=== PATIENT | female | born 1990 | race Caucasian/White ===

== ENCOUNTER 2020-09-26 23:49 | Inpatient (IN) | payer OTHER ==
[~2020-09-26] VITALS: Ht 165.1 cm; Wt 99.3 kg
--- NOTE | ~2020-09-26 | OR ---
[facility] [address] [place], [place] [address] Draft DATE OF OPERATION: 09/27/2020 SURGEON: Cristina Cueto MD DATE OF PROCEDURE: 09/27/2020 VENDING MACHINE SERVICER: Louie Finnegan M.D. PREOPERATIVE DIAGNOSIS: Term , secondary arrest of dilation. POSTOPERATIVE DIAGNOSIS: Term , secondary arrest of dilation, delivered. PROCEDURE: Primary section with low segment transverse uterine incision. ANESTHESIA: Epidural. ESTIMATED BLOOD LOSS: 600 mL. DRAINS: Agudelo catheter. INDICATIONS AND FINDINGS: The patient is a 30-year-old female, 4, para 1, SAB one, VIP 1, who was admitted at approximately midnight with active labor. She had come in when she was 5.5 to 6 cm dilated. She received an epidural and artificial rupture membranes was carried out with a moderate amount of clear fluid. Subsequently, she made extremely slow progress. She eventually reached 8 cm over the next 7 hours; however, at that point, she made no further progress. Pitocin augmentation was done and contraction pattern appeared adequate. She was tried on multiple different positions. It was felt at that point that there was secondary arrest of dilation and was indicated. The patient was consented. She was taken to the operating room, where she was delivered of a little girl via lower segment transverse uterine incision from the ROP position with Apgars of 9 and 9 and weight of 8 pounds 15 ounces. Uterus, tubes, ovaries, and placenta were PATIENT NAME: ADRIENNE RUIZ OPERATIVE REPORT DATE OF : 86 REPORT #: [id number] PHYSICIAN: CRISTINA CUETO MD PCP: CRISTINA CUETO MD REPORT IS CONFIDENTIAL AND NOT TO BE RELEASED WITHOUT AUTHORIZATION [facility] [address] [place], [place] [address] Draft normal. DESCRIPTION OF PROCEDURE: The patient was prepped and draped in the supine position. A Pfannenstiel skin incision was made and carried down through the fascia. The incision was extended laterally. The inferior and superior fascial flaps were created. The muscles were bluntly divided and the peritoneum opened bluntly and the incision extended inferiorly and superiorly. The Lowell retractor was placed. The uterine incision was made at the upper aspect of the peritoneal reflection. The baby was delivered with the above findings and handed off to the pediatric staff in attendance. Following this, placenta was removed manually. The uterus was explored with a lap tape assuring no remaining fragments. The edges of the incision were identified and the uterus was closed in 2 layers using 0-Monocryl. The first layer was a running locking stitch and the second was a vertical imbricating stitch. Additional suture was required near the left angle and in the mid section for control of bleeding. The abdomen was then copiously irrigated, inspected. Bleeding points along the peritoneal edge were controlled with cautery. The retractor was removed and the peritoneum identified. An ACell graft was laid over the lower segment to aid in healing. The peritoneum was then closed with a running suture of 3-0 Vicryl. The muscles were brought together with interrupted sutures of 0-Vicryl. Bleeding points were controlled on the muscle using cautery. Additional gjzkch-ro-[id number] of 0-Vicryl were required at the right upper aspect of the fascia and muscle for control of bleeding. This layer was then serially irrigated and inspected and good hemostasis was noted. ACell powder was sprinkled over the muscles to aid in healing. The fascia was then closed from each angle to the midline with a running suture of 0-Vicryl. The subcu space was irrigated and bleeding points controlled with cautery. The deep space was closed with interrupted sutures of 3-0 Vicryl. The skin was closed with flaquita. All sponge and needle counts were correct. She tolerated the procedure well and was taken to the recovery room in good condition. MD KARRIE MaderaW/MODL /[id number] cc: Louie Finnegan MD PATIENT NAME: ADRIENNE RUIZ OPERATIVE REPORT DATE OF : 86 REPORT #: [id number] PHYSICIAN: CRISTINA CUETO MD PCP: CRISTINA CUETO MD REPORT IS CONFIDENTIAL AND NOT TO BE RELEASED WITHOUT AUTHORIZATION [facility] [address] [place] [id number] Draft Copies: LOUIE FINNEGAN MD ~ PATIENT NAME: ADRIENNE RUIZ SUTTON OPERATIVE REPORT DATE OF : 86 REPORT #: [id number] PHYSICIAN: CRISTINA CUETO MD PCP: CIRSTINA CUETO MD REPORT IS CONFIDENTIAL AND NOT TO BE RELEASED WITHOUT AUTHORIZATION
[~2020-09-26 23:49] MED LIST: PRENATAL VITAM1 EAC7 PO; ZANTAC150 MG PO
--- NOTE | 2020-09-27 01:51 | PR ---
[facility] [address] [facility] [place], [place] [address] Signed Progress Notes IP Datetime Report Generated by HERON: 09/27/2020 01:51 PROGRESS NOTES: [id number] Impression: Normal Progression of Labor Procedures: Artificial ROM; Sterile Vag Exam Plan: Continue Present Management VITAL SIGNS: [id number] Vital Signs: Reviewed VS Notable Details: intermittent HTN EXAM: [id number] Dilatation: 6.0 Effacement: 80 Station: -2 Contractions: q 3 to 5 min MEMBRANES: [id number] Comments: Comfortable after epidural. Will continue present care. FETUS A: [id number] FHR Baseline: 140 Variability: Moderate 6-25bpm Accelerations: 10X10 FHR Category: Category II Presentation: Vertex Comments on Fetus A: possible decels though difficult to characterize at this time FETUS B: [id number] Signing Physician: Cristina Cueto MD Copies: ~ *Electronically Signed* 09/27/20 0151 CRISTINA CUETO MD PATIENT NAME: ADRIENNE RUIZ PROGRESS NOTE DATE OF : 86 PHYSICIAN: CRISTINA CUETO MD RPT #: [id number] REPORT IS CONFIDENTIAL AND NOT TO BE RELEASED WITHOUT AUTHORIZATION
--- NOTE | 2020-09-27 08:34 | PR ---
[facility] [address] [facility] [place] [address] Signed Progress Notes IP Datetime Report Generated by HERON: 09/27/2020 08:34 PROGRESS NOTES: [id number] Impression: Normal Progression of Labor Other Impressions: very slow progress Procedures: Intrauterine Pressure Catheter; Scalp Electrode Plan: Augmentation VITAL SIGNS: [id number] Vital Signs: Reviewed VS Notable Details: intermittent HTN EXAM: [id number] Dilatation: 8.0 Effacement: 85 Station: -2 Contractions: q 3 to 5 min MEMBRANES: [id number] Comments: Very slow progress. Very edematous cervix ant and to right. Will place IUPC and augment with pitocin as needed. Suspect inadequate contraction strength and frequency. Will change positions as well and continue close observation. FETUS A: [id number] FHR Baseline: 140 Variability: Moderate 6-25bpm Accelerations: 10X10 FHR Category: Category II Presentation: Vertex Comments on Fetus A: possible decels though difficult to characterize at this time FETUS B: [id number] Signing Physician: Cristina Cueto MD Copies: ~ *Electronically Signed* 09/27/20 0834 CRISTINA CUETO MD PATIENT NAME: ADRIENNE RUIZ PROGRESS NOTE DATE OF : 86 PHYSICIAN: CRISTINA CUETO MD RPT #: [id number] REPORT IS CONFIDENTIAL AND NOT TO BE RELEASED WITHOUT AUTHORIZATION
--- NOTE | 2020-09-27 11:13 | PR ---
[facility] [address] [place], [place] [address] Signed Progress Notes IP Datetime Report Generated by CPN: 09/27/2020 11:13 PROGRESS NOTES: [id number] Impression: Arrest of Dilatation/Descent Other Impressions: very slow progress Procedures: Sterile Vag Exam Plan: Deliver- Section Informed Consent Obtain: Section Delivery; Risks, Benefits and Alternatives Discussed VITAL SIGNS: [id number] Vital Signs: Reviewed VS Notable Details: intermittent HTN EXAM: [id number] Dilatation: 8.0 Effacement: 85 Station: -2 Contractions: q 3 to 5 min MEMBRANES: [id number] Comments: No progress over the last 4 hrs despite adequate contractions with pit augmentation. I feel C/S is indicated given the arrest of dilation. PARQ done with pt. Will proceed with C/S. FETUS A: [id number] FHR Baseline: 140 Variability: Moderate 6-25bpm Accelerations: 10X10 FHR Category: Category II Presentation: Vertex Comments on Fetus A: possible decels though difficult to characterize at this time FETUS B: [id number] Signing Physician: Cristina Cueto MD Copies: ~ *Electronically Signed* 09/27/20 1113 CRISTINA CUETO MD PATIENT NAME: ADRIENNE RUIZ PROGRESS NOTE DATE OF : 86 PHYSICIAN: CRISTINA CUETO MD RPT #: [id number] REPORT IS CONFIDENTIAL AND NOT TO BE RELEASED WITHOUT AUTHORIZATION
--- NOTE | 2020-09-27 13:07 | NUR ---
09/27/20 1307 Yamilet Keenan 1258: PT ARRIVES TO [facility] ROOM 102 FROM OR AWAKE AND ALERT. PT DENIES PAIN OR NAUSEA ON ARRIVAL. SPOUSE IN ROOM AT BEDSIDE WITH INFANT. [facility] RN IN ROOM ASSISTING SPOUSE/PT WITH BREAST FEEDING. POLICE JUDGE IN RM AT THIS TIME. 1305: PT HOLDING ON RIGHT SIDE BREAST FEEDING. CONT TO DENY ANY PAIN OR NAUSEA.
--- NOTE | 2020-09-28 08:59 | PR ---
[facility] [address] [facility] [place], [place] [address] Signed PP Progress Notes Datetime Report Generated by CPN: 09/28/2020 08:59 SUBJECTIVE: [id number] Pain: Within Normal Limits Nausea/Vomiting: Denies Flatus: No Vital Signs: [id number] Vital Signs: Reviewed; Within Normal Limits EXAM: Ongoing Cardiovascular: Normal Respiratory: Normal Abdomen/Uterus: Abnormal Lochia: Normal Vulva/Perineum: Not Done Breasts: Not Done CVA Tenderness: Not Done Extremities: Normal Incision: Normal Progress: Normal Exam Comments: Abdomen has active BS. Fundus firm, NT @ U-1. H/H 9.9/29.5, WBC 18.2, plat 190k IMPRESSION/PLAN/PROCEDURES: [id number] Impression: Normal Progression Other Plans: increase activity Progress Notes: Doing well. Will increase activity. Signing Physician: Cristina Cueto MD Copies: ~ *Electronically Signed* 09/28/20 0859 CRISTINA CUETO MD PATIENT NAME: ADRIENNE RUIZ SUTTON PROGRESS NOTE DATE OF : 86 PHYSICIAN: CRISTINA CUETO MD RPT #: [id number] REPORT IS CONFIDENTIAL AND NOT TO BE RELEASED WITHOUT AUTHORIZATION
--- NOTE | 2020-09-29 08:43 | PR ---
[facility] [address] [facility] [place], [place] [address] Signed PP Progress Notes Datetime Report Generated by CPN: 09/29/2020 08:43 SUBJECTIVE: [id number] Pain: Within Normal Limits Nausea/Vomiting: Denies Flatus: Yes Vital Signs: [id number] Vital Signs: Reviewed; Within Normal Limits EXAM: Ongoing Cardiovascular: Normal Respiratory: Normal Abdomen/Uterus: Abnormal Lochia: Normal Vulva/Perineum: Not Done Breasts: Not Done CVA Tenderness: Not Done Extremities: Normal Incision: Normal Progress: Normal Exam Comments: Abdomen with active BS. Fundus firm, NT @ U-1. IMPRESSION/PLAN/PROCEDURES: [id number] Impression: Normal Progression Plan: Remove Alma Delia; Discharge Other Plans: increase activity Procedures: None Progress Notes: Doing well. She desires D/C. Signing Physician: Cristina Cueto MD Copies: ~ *Electronically Signed* 09/29/20 0843 CRISTINA CUETO MD PATIENT NAME: ADRIENNE RUIZ PROGRESS NOTE DATE OF : 86 PHYSICIAN: CRISTINA CUETO MD RPT #: [id number] REPORT IS CONFIDENTIAL AND NOT TO BE RELEASED WITHOUT AUTHORIZATION
== END 2020-09-29 10:50 | disposition home or self-care (01) | DRG 788 ==
LOC: FBCO 23:49 → FBC 09-27 00:10
PROVIDERS: ADMIT Obstetrics & Gynecology; ATTEND Obstetrics & Gynecology
PROC: 10907ZC Drainage of Amniotic Fluid, Therapeutic from Products of Conception, Via Natural or Artificial Opening (ICD-10-PCS; 2020-09-27)
PROC: 10H07YZ Insertion of Other Device into Products of Conception, Via Natural or Artificial Opening (ICD-10-PCS; 2020-09-27)
PROC: 00HU33Z Insertion of Infusion Device into Spinal Canal, Percutaneous Approach (ICD-10-PCS; 2020-09-27)
PROC: 3E0R3BZ Introduction of Anesthetic Agent into Spinal Canal, Percutaneous Approach (ICD-10-PCS; 2020-09-27)
PROC: 10D00Z1 Extraction of Products of Conception, Low, Open Approach (ICD-10-PCS; principal; 2020-09-27 12:11)
DX: O62.1 Secondary uterine inertia (principal); O34.43 Maternal care for other abnormalities of cervix, third trimester; O26.03 Excessive weight gain in pregnancy, third trimester; O26.86 Pruritic urticarial papules and plaques of pregnancy (PUPPP); Z3A.39 39 weeks gestation of pregnancy; Z37.0 Single live birth
CPT/HCPCS: 01961; 36415; 85027; A9270; J0690; J2274; J2370; J2405; J2590; J2795; J7121